=== PATIENT | female | born 1995 | race Caucasian/White ===

== ENCOUNTER → 2017-03-08 | Outpatient (CLI) | payer OTHER ==
[2017-03-08 14:07] LABS: BASO % 0.7 % (0.0-1.0); EOS # 0.1 10^3/uL (0.0-0.50); HEMATOCRIT 37.7 % (36.0-47.0); HEMOGLOBIN 11.5 g/dl (12.0-16.0); IMMATURE GRANULOCYTE % 0.2 % (0-0); LYMPH # 1.7 10^3/uL (1.5-6.5); LYMPH % 39.1 % (24.0-44.0); MEAN CORPUSCULAR HEMOGLOBIN 23.7 pg (27.0-33.0); MEAN CORPUSCULAR HGB CONC 30.5 g/dl (32.0-36.5); MEAN CORPUSCULAR VOLUME 77.7 fl (80.0-96.0); MONO # 0.3 10^3/uL (0.0-0.8); NEUTROPHILS # 2.2 10^3/uL (1.8-7.7); PLATELET COUNT, AUTOMATED 308 10^3/uL (150-450); RED BLOOD COUNT 4.85 10^6/uL (4.00-5.40); RED CELL DISTRIBUTION WIDTH 14.7 % (11.5-14.5); WHITE BLOOD COUNT 4.4 10^3/uL (4.0-10.0)
[2017-03-08 14:34] LABS: ALBUMIN 3.8 GM/DL (3.2-5.2); ALBUMIN/GLOBULIN RATIO 1.36 (1.00-1.93); ALKALINE PHOSPHATASE 44 U/L (45-117); ALT/SGPT 16 U/L (12-78); ANION GAP 5 MEQ/L (8-16); AST/SGOT 9 U/L (7-37); BILIRUBIN,TOTAL 0.3 MG/DL (0.2-1.0); BLOOD UREA NITROGEN 10 MG/DL (7-18); CALCIUM LEVEL 8.8 MG/DL (8.5-10.1); CARBON DIOXIDE LEVEL 27 MEQ/L (21-32); CHLORIDE LEVEL 109 MEQ/L (98-107); CHOLESTEROL LEVEL 182 MG/DL (<200); CHOLESTEROL RISK RATIO 3.433 (<5); CREATININE FOR GFR 0.57 MG/DL (0.55-1.02); FREE T4 0.83 NG/DL (0.76-1.46); GLOMERULAR FILTRATION RATE > 60.0 (>60); GLUCOSE, FASTING 85 MG/DL (70-105); HDL CHOLESTEROL 53 MG/DL (>40); LDL CHOLESTEROL 109.8 MG/DL (<100); NON-HDL-C 129 MG/DL; POTASSIUM SERUM 4.6 MEQ/L (3.5-5.1); SODIUM LEVEL 141 MEQ/L (136-145); TOTAL PROTEIN 6.6 GM/DL (6.4-8.2); TRIGLYCERIDES LEVEL 96 MG/DL (<150)
[2017-03-08 14:57] LABS: ESTIMATED AVERAGE GLUCOSE 103 MG/DL (60-110); HEMOGLOBIN A1c 5.2 %
== END ==
LOC: M WUC 09:01
DX: G43.909 Migraine, unspecified, not intractable, without status migrainosus (principal); R62.51 Failure to thrive (child); Z79.899 Other long term (current) drug therapy; R63.4 Abnormal weight loss
CPT/HCPCS: 84443

== ENCOUNTER 2018-02-24 11:02 | Emergency (ER) | payer OTHER, SELFPAY ==
[~2018-02-24] VITALS: Ht 160 cm; Wt 50.0 kg
[2018-02-24 11:43] LABS: BASO % 0.3 % (0.0-1.0); EOS # 0.1 10^3/uL (0.0-0.50); EOS % 0.9 % (0.0-3.0); HEMATOCRIT 38.5 % (36.0-47.0); HEMOGLOBIN 13.1 g/dl (12.0-15.5); LYMPH # 1.3 10^3/uL (1.5-6.5); LYMPH % 19.5 % (24.0-44.0); MEAN CORPUSCULAR HEMOGLOBIN 28.9 pg (27.0-33.0); MEAN CORPUSCULAR VOLUME 84.8 fl (80.0-96.0); MONO # 0.4 10^3/uL (0.0-0.8); MONO % 6.1 % (0.0-5.0); NEUTROPHILS # 4.9 10^3/uL (1.8-7.7); NEUTROPHILS % 72.8 % (36.0-66.0); PLATELET COUNT, AUTOMATED 239 10^3/uL (150-450); RED BLOOD COUNT 4.54 10^6/uL (4.00-5.40); WHITE BLOOD COUNT 6.8 10^3/uL (4.0-10.0)
[2018-02-24 12:06] LABS: ALBUMIN 3.5 GM/DL (3.2-5.2); ALT/SGPT 20 U/L (12-78); AMYLASE 40 U/L (25-115); BILIRUBIN,DIRECT < 0.1 MG/DL (0.0-0.2); BILIRUBIN,TOTAL 0.3 MG/DL (0.2-1.0); BLOOD UREA NITROGEN 6 MG/DL (7-18); CALCIUM LEVEL 8.6 MG/DL (8.5-10.1); CARBON DIOXIDE LEVEL 25 MEQ/L (21-32); CHLORIDE LEVEL 105 MEQ/L (98-107); CREATININE FOR GFR 0.43 MG/DL (0.55-1.30); GLOMERULAR FILTRATION RATE > 60.0 (>60); GLUCOSE, FASTING 61 MG/DL (70-100); POTASSIUM SERUM 3.3 MEQ/L (3.5-5.1); SODIUM LEVEL 138 MEQ/L (136-145); TOTAL PROTEIN 6.9 GM/DL (6.4-8.2)
--- NOTE | 2018-02-24 13:45 | REP ---
FIRST TRIMESTER ULTRASOUND: HISTORY: Pelvic discomfort. A single intrauterine is present in vertex presentation. Biparietal diameter 2 cm, 13 weeks 1 day Head circumference 7.3 cm, 13 weeks 0 days Abdominal circumference 5.9 cm, 12 weeks 5 days Femur length 0.9 cm, 12 weeks 4 days Humerus length 1 cm, no gestational age provided heart rate 158 beats per minute. weight 62 grams. The visualized anatomy is normal. The placenta is posterior and fundal. There is no abruption or previa. The amniotic fluid is within normal limits. The cervix measures 3.7 cm. The adnexa are within normal limits. There is no fluid in the cul-de-sac. IMPRESSION: There is a single intrauterine in vertex presentation with a gestational age by ultrasound of 12 weeks 6 days. A repeat examination in 19-20 weeks may be helpful for further evaluation. Electronically Signed by Magdiel Zuñiga MD 02/24/2018 01:48 P
[2018-02-24] MEDS ORDERED: REGL10TA6 PO (13:49)
[2018-02-24 13:50] VITALS: BP 92/52
== END 2018-02-24 13:55 | disposition home or self-care (01) ==
LOC: M ED 11:02
DX: O99.89 Other specified diseases and conditions complicating pregnancy, childbirth and the puerperium (principal); R10.2 Pelvic and perineal pain; Z3A.12 12 weeks gestation of pregnancy

== ENCOUNTER → 2018-04-05 | Outpatient (REF) | payer OTHER ==
[~2018-04-05] MED LIST: REGL10TA6 PO
== END ==
LOC: M LAB REF 12:24
PROVIDERS: ATTEND Physician Assistant
DX: J06.9 Acute upper respiratory infection, unspecified (principal)

== ENCOUNTER 2019-11-24 13:51 | Emergency (ER) | payer BC ==
[~2019-11-24] VITALS: Ht 160 cm; Wt 51.8 kg
[2019-11-24] MEDS ORDERED: iron (13:59)
[2019-11-24] MEDS ORDERED: prenatal vit (13:59)
[2019-11-24 15:12] LABS: BASO % 0.3 % (0.0-1.0); EOS # 0.1 10^3/uL (0.0-0.5); HEMATOCRIT 29.8 % (36.0-47.0); HEMOGLOBIN 9.5 g/dl (12.0-15.5); LYMPH # 1.4 10^3/uL (1.5-5.0); LYMPH % 18.6 % (24.0-44.0); MEAN CORPUSCULAR HEMOGLOBIN 23.9 pg (27.0-33.0); MEAN CORPUSCULAR HGB CONC 31.9 g/dl (32.0-36.5); MEAN CORPUSCULAR VOLUME 75.1 fl (80.0-96.0); MONO # 0.4 10^3/uL (0.0-0.8); MONO % 4.8 % (0.0-5.0); NEUTROPHILS # 5.5 10^3/uL (1.5-8.5); PLATELET COUNT, AUTOMATED 296 10^3/uL (150-450); RED BLOOD COUNT 3.97 10^6/uL (4.00-5.40); WHITE BLOOD COUNT 7.3 10^3/uL (4.0-10.0)
[2019-11-24 15:27] LABS: AMORPHOUS SEDIMENT SMALL (NEGATIVE); APPEARANCE, URINE CLEAR (CLEAR); BACTERIA, URINE AUTO NEGATIVE (NEGATIVE); BILIRUBIN, URINE AUTO NEGATIVE (NEGATIVE); BLOOD, URINE BLOOD 2+ (NEGATIVE); COLOR, URINE STRAW (YELLOW); GLUCOSE, URINE (UA) AUTO NEGATIVE (NEGATIVE); KETONE, URINE AUTO NEGATIVE (NEGATIVE); LEUKOCYTE ESTERASE, URINE AUTO NEGATIVE (NEGATIVE); NITRITE, URINE AUTO NEGATIVE (NEGATIVE); PROTEIN, URINE AUTO NEGATIVE (NEGATIVE); RBC, URINE AUTO 0 /HPF (0-3); SPECIFIC GRAVITY URINE AUTO 1.002 (1.002-1.035); SQUAMOUS EPITHELIAL CELL UR AU 0 /HPF (0-6); UROBILINOGEN, URINE AUTO 0.2 mg/dL (0.0-2.0); WBC, URINE AUTO 1 /HPF (0-3)
--- NOTE | 2019-11-24 17:20 | REPVR ---
PROCEDURE INFORMATION: Exam: US After First Trimester, Transabdominal Exam date and time: 11/24/2019 3:59 PM Age: 24 years old Clinical indication: Lmp or gestational age (in weeks): 14; Antepartum complications; Bleeding; ; Additional info: Vaginal bleeding TECHNIQUE: Imaging protocol: Real-time transabdominal obstetrical ultrasound of the maternal pelvis and a second or third trimester with image documentation. COMPARISON: 1. CT ABD PELVIS WITH CONTRAST 12/15/2013 11:36 PM 2. DC - 1ST TRIMESTER US 02/24/2018 12:38:55 PM 3. SR - 1ST TRIMESTER US 12/12/2014 6:03:52 AM 4. SR - 1ST TRIMESTER US 12/11/2014 10:51:25 AM FINDINGS: Gestation: There is a single live intrauterine gestation. heart rate: heart motion was observed, with heart rate of 163 bpm. Presentation: Variable presentation. Placenta: The placenta is posterior. There is a slightly hypoechoic area along the posterior margin of the placenta measuring 6.0 x 4.1 by 5.2 cm. However, this is more echogenic than typically expected for a retroplacental hemorrhage. This has echogenicity similar to adjacent uterine wall. This could represent a contraction or fibroid. This may just represent the contour of the uterine wall, as the posterior uterine wall had a similar configuration on prior Ob ultrasound from 02/24/2018. Placental grade is 0. Amniotic fluid: Amniotic fluid is normal for gestational age. ANATOMY: anatomic survey was not performed due to early gestational age. BIOMETRY: Gestational age (AUA): Gestational age based on current ultrasound is 14 weeks 3 days. Estimated gestational age based on last menstrual period is 14 weeks 0 days. anatomic survey was not performed due to early gestational age. Estimated due date (AUA): Estimated date of delivery based on current ultrasound is 05/21/2020. Estimated date of delivery based on last menstrual period is 05/24/2020. Estimated weight: Estimated weight is 100 g (0 lb 3 oz) Biparietal diameter: Biparietal diameter 2.7 cm, 14 weeks 5 days, 78 percentile Head circumference: Head circumference 9.8 cm, 14 weeks 4 days, 69th percentile Abdominal circumference: Abdominal circumference 9.0 cm, 15 weeks 1 day, 81st percentile Femur length: Femur length 1.3 cm, 13 weeks 6 days, 48th percentile [place] length: [place]rump length 8.3 cm, 14 weeks 2 days, 60th percentile Humeral length: Humeral length 1.5 cm, 14 weeks 1 day, 53rd percentile biometric ratios: The ratio of head circumference to abdominal circumference is slightly low at 1.09 (normal 1.11-1.30) MATERNAL ANATOMY: Uterus: See "Placenta" finding. Cervix: The cervix is closed, measuring 3.0 cm in length. The image showing measurement of the cervix suggests placenta previa, but placenta previa was not reported as an observation by the escalator operator. Right adnexa: The right ovary measures 2.8 x 4.2 x 1.9 cm. There is a small corpus luteum cyst in the right ovary measuring 1.3 x 1.7 x 1.1 cm. Left adnexa: Left ovary was not visualized. Intraperitoneal space: No free fluid. IMPRESSION: 1. Single live intrauterine gestation with estimated gestational age of 14 weeks 3 days. 2. 6 cm slightly hypoechoic region posterior to the placenta, more echogenic than expected for retroplacental hemorrhage. This has echogenicity similar to adjacent uterine wall. Hieu Bowser contraction or uterine fibroid are possible. However, this is most likely a variation in the contour of the uterine wall, as the posterior uterine wall had a similar configuration on prior ultrasound from 02/24/2018. 3. Cervix is closed measuring 3.0 cm. On the cervical length measurement image, it is difficult to exclude placenta previa. Suggest follow-up ultrasound. 4. The ratio of head circumference to abdominal circumference is slightly low as detailed above. Suggest attention to this on follow-up ultrasound. 5. anatomic survey not performed due to early gestational age. Recommend standard 20 week Ob ultrasound with full anatomic survey. Electronically signed by: Yarelis Molina On 11/24/2019 17:20:35 PM
[2019-11-24 18:17] VITALS: BP 113/69
== END 2019-11-24 18:21 | disposition home or self-care (01) ==
LOC: M ED 13:51
DX: O20.0 Threatened abortion (principal); O44.22 Partial placenta previa NOS or without hemorrhage, second trimester; Z3A.14 14 weeks gestation of pregnancy; Z87.59 Personal history of other complications of pregnancy, childbirth and the puerperium